=== PATIENT | female | born 1945 | race American Indian/Alaskan Native ===

== ENCOUNTER 2017-03-15 13:44 | Day surgery (SDC) | payer MEDICARE, BC ==
[~2017-03-15] VITALS: Ht 157.5 cm; Wt 56.2 kg
[~2017-03-15 13:44] MED LIST: BIAXIN XL 500M500 MG PO; BYSTOLIC5 MG PO; DESYREL 50MG50 MG PO; IMDUR 30MG30 MG/TAB PO; LORTAB 7.5/5001 TAB PO; MOBIC 7.5MG7.5 MG PO; NORCO 325 MG-7.1 TAB PO; NORVASC 5MG5 MG/TAB PO; PLAVIX 75MG TAB75 MG PO; PREVACID30 MG PO; PROTONIX 40MG T40 MG PO; REMERON 15M15 MG/TA1 PO; RT SPIRIVA18 MCG IH; SINGULAIR 110 MG/TAB PO; SOMA; SOMA 350MG350 MG/TAB PO; THEO-24 20200 MG/CAP PO; XANAX2 MG PO; ZANTAC 300300 MG PO; ZESTRIL 5MG5 MG PO; ZOCOR 20MG20 MG PO; ZOFRAN ODT4 MG PO
[2017-03-15 14:13] VITALS: BP 147/82; PULSE 80; TEMP 97.2
[2017-03-15] MEDS ORDERED: LYRICA 50MG CAP50 MG PO (14:35)
[2017-03-15] MEDS ORDERED: NITROSTAT0.4 MG/TAB SL (14:35)
[2017-03-15] MEDS ORDERED: SOMA 350MG350 MG/TAB PO (14:36)
[2017-03-15] MEDS ORDERED: LIPITOR20 MG PO (14:36)
[2017-03-15] MEDS ORDERED: FENTANYL 50MCG TD (14:36)
[2017-03-15] MEDS ORDERED: NORCO 325 MG-101 TAB PO (14:37)
[2017-03-15] MEDS ORDERED: MAGIC MOUTHWASH1 M1 PO (14:38)
[2017-03-15] MEDS ORDERED: NYSTATIN OR100 MU/ML PO (14:39)
[2017-03-15 15:28] VITALS: BP 109/68; PULSE 89; TEMP 97.7
[2017-03-15 15:43] VITALS: BP 103/69; PULSE 80
[2017-03-15 15:58] VITALS: BP 115/70; PULSE 79
[2017-03-15 16:10] VITALS: BP 122/74; PULSE 82
== END 2017-03-15 16:19 | disposition home or self-care (01) ==
LOC: SDCO 13:44
DX: K21.0 Gastro-esophageal reflux disease with esophagitis (principal); K22.2 Esophageal obstruction; I10 Essential (primary) hypertension; J45.909 Unspecified asthma, uncomplicated
CPT/HCPCS: C1726; J2250; J3010; J7030